=== PATIENT | female | born 1990 | race Caucasian/White ===

== ENCOUNTER 2016-09-16 00:14 | Emergency (ER) | payer SELFPAY ==
[2016-09-16 00:15] VITALS: BMI 21.0
[2016-09-16 00:31] VITALS: BP 129/81; PULSE 80; RESP 18; TEMP 97.7; O2SAT 100
--- NOTE | 2016-09-16 02:09 | ED PDOC ---
HPI: Female Pain Time Seen by Provider: 09/16/16 00:29 Chief Complaint (Nursing): Female Genitourinary Chief Complaint (Provider): Burning on urination, a few hours History Per: Patient History/Exam Limitations: no limitations Onset/Duration Of Symptoms: Days Current Symptoms Are (Timing): Still Present Severity: Moderate Pain Scale Rating Of: 5 Quality Of Discomfort: Burning Associated Symptoms: denies: Fever, Chills, Nausea, Vomiting, Loss Of Appetite Alleviating Factors: None Additional Complaint(s): Pt states she was at work and developed pain on urination. Pt denies back pain, abdominal pain, fever or nausea. Past Medical History Reviewed: Historical Data, Nursing Documentation, Vital Signs Vital Signs: Last Vital Signs Temp 97.7 F 09/16/16 00:28 Pulse 80 09/16/16 00:28 Resp 18 09/16/16 00:28 BP 129/81 09/16/16 00:28 Pulse Ox 100 09/16/16 00:28 - Medical History PMH: No Chronic Diseases Denies: Depression - Surgical History Surgical History: No Surg Hx - Family History Family History: States: No Known Family Hx - Living Arrangements Living Arrangements: With Family - Social History Current smoker - smoking cessation education provided: No - Home Medications Home Medications: Ambulatory Orders Medication Instructions Recorded Naproxen [Naprosyn] 500 mg PO BID #14 tab 01/29/12 Azithromycin [Zithromax Z-Naren] 250 mg PO DAILY #6 tab 06/28/12 Cetirizine Hydrochloride [Zyrtec] 5 mg PO DAILY #10 tab 06/28/12 Acetaminophen/Oxycodone Hydr 1 tab PO Q6 PRN #10 tab 04/21/13 [Percocet 325 mg-5 mg] Neomycin/Polymyxin/Hydrocortis 3 drop QID #1 bottle 04/21/13 [Cortisporin Otic Susp] Ciprofloxacin [Cipro] 500 mg PO BID #10 tab 09/16/16 - Allergies Allergies/Adverse Reactions: Allergies Allergy/AdvReac Type Severity Reaction Status Date / Time No Known Allergies Allergy Verified 01/29/12 07:17 Review of Systems ROS Statement: Except As Marked, All Systems Reviewed And Found Negative Genitourinary Female: Positive for: Dysuria Physical Exam - Reviewed Nursing Documentation Reviewed: Yes Vital Signs Reviewed: Yes - Physical Exam Appears: Positive for: Well, Non-toxic, No Acute Distress Head Exam: Positive for: ATRAUMATIC, NORMAL INSPECTION, NORMOCEPHALIC Skin: Positive for: Normal Color, Warm, DRY Eye Exam: Positive for: Normal appearance ENT: Positive for: Normal ENT Inspection Neck: Positive for: Normal, Painless ROM Cardiovascular/Chest: Positive for: Regular Rate, Rhythm Respiratory: Positive for: CNT, Normal Breath Sounds Gastrointestinal/Abdominal: Positive for: Normal Exam, Bowel Sounds, Soft. Negative for: Tenderness Back: Positive for: Normal Inspection Extremity: Positive for: Normal ROM Neurologic/Psych: Positive for: Alert, Oriented - ECG O2 Sat by Pulse Oximetry: 100 Disposition - Clinical Impression Clinical Impression: Urinary tract infection - Patient ED Disposition Is Patient to be Admitted: No Counseled Patient/Family Regarding: Diagnosis, Need For Followup, Rx Given - Disposition Referrals: [facility] [Outside] [facility] [Outside] Disposition: Routine/Home Disposition Time: 02:04 Condition: GOOD Prescriptions: Ciprofloxacin [Cipro] 500 mg PO BID #10 tab Instructions: Urinary Tract Infection in Women (ED)
== END 2016-09-16 02:25 | disposition home or self-care (01) ==
LOC: H.ER 00:14
DX: N39.0 Urinary tract infection, site not specified (principal)

== ENCOUNTER 2016-12-15 20:52 | Observation (INO) | payer SELFPAY ==
[2016-12-15 20:52] VITALS: BMI 21.0
[2016-12-15 21:09] VITALS: TEMP 98; O2SAT 100
[2016-12-15] MEDS ORDERED: Iohexol 240 (50 ml) PO STA (21:54)
[2016-12-15 22:02] LABS: BASO % 0.9 % (0.0-2.0); EOS # 0.2 K/uL (0.0-0.7); EOS % 4.5 % (0.0-4.0); HEMATOCRIT 39.6 % (34.0-47.0); LYMPH # 1.7 K/uL (1.0-4.3); MEAN CORPUSCULAR HGB CONC 32.9 g/dL (33.0-37.0); MEAN PLATELET VOLUME 9.5 fl (7.2-11.7); MONO # 0.4 K/uL (0.0-0.8); MONO % 7.7 % (0.0-10.0); NEUT # 3.1 K/uL (1.8-7.0); NEUT % 55.9 % (50.0-75.0); NRBC % 0.2 % (0.0-0.0); WHITE BLOOD COUNT 5.5 K/uL (4.8-10.8)
[2016-12-15] MEDS ORDERED: Iohexol 240 (50 ml) ONE (22:15)
[2016-12-15 22:20] LABS: RBC URINE 3 /hpf (0-3); URINE BACTERIA FEW (<OCC); URINE BILIRUBIN NEGATIVE (NEGATIVE); URINE BLOOD NEGATIVE (NEGATIVE); URINE COLOR YELLOW (YELLOW); URINE GLUCOSE (UA) NEG (Normal); URINE KETONE NEGATIVE (NEGATIVE); URINE LEUKOCYTE ESTERASE LARGE Leu/uL (Negative); URINE PROTEIN NEGATIVE (NEGATIVE); URINE UROBILINOGEN 0.2-1.0 mg/dL (0.2-1.0); WBC URINE 34 /hpf (0-5)
[2016-12-15 22:29] LABS: ALB/GLOB RATIO 1.2 (1.0-2.1); ALKALINE PHOSPHATASE 65 U/L (38-126); ALT/SGPT 9 U/L (9-52); AST/SGOT 54 U/L (14-36); BILIRUBIN,TOTAL 1.4 mg/dl (0.2-1.3); BLOOD UREA NITROGEN 9 mg/dl (7-17); CALCIUM 9.5 mg/dL (8.4-10.2); CARBON DIOXIDE 25 mmol/L (22-30); CHLORIDE 103 mmol/L (98-107); GFR AFRICAN-AMERICAN > 60; GLUCOSE,RANDOM 88 mg/dL (65-105); SODIUM 143 mmol/l (132-148); TOTAL PROTEIN 8.9 G/DL (6.3-8.2)
--- NOTE | 2016-12-15 23:15 | ED PDOC ---
HPI: Abdomen Time Seen by Provider: 12/15/16 21:14 Chief Complaint (Nursing): Female Genitourinary Chief Complaint (Provider): Abdominal pain, right lower back pain History Per: Patient History/Exam Limitations: no limitations Onset/Duration Of Symptoms: Days (3) Outside of [place] travel?: No Current Symptoms Are (Timing): Still Present Severity: Moderate Pain Scale Rating Of: 5 Location Of Pain/Discomfort: RLQ Quality Of Discomfort: Sharp ("like a sharp bubble of gas" ) Associated Symptoms: Nausea, Loss Of Appetite, Urinary Symptoms (Increased frequency - PT states similar to UTI in the past ). denies: Fever, Chills, Vomiting, Back Pain Exacerbating Factors: None Alleviating Factors: None Last Bowel Movement: Days Ago (2) Past Medical History Reviewed: Historical Data, Nursing Documentation, Vital Signs Vital Signs: Last Vital Signs Temp 98 F 12/15/16 21:06 Pulse 75 12/15/16 21:06 Resp 18 12/15/16 21:06 BP 150/108 H 12/15/16 21:06 Pulse Ox 100 12/16/16 00:37 - Medical History PMH: No Chronic Diseases Denies: Depression - Surgical History Surgical History: No Surg Hx - Family History Family History: States: No Known Family Hx - Living Arrangements Living Arrangements: With Family - Social History Current smoker - smoking cessation education provided: No - Home Medications Home Medications: Ambulatory Orders Medication Instructions Recorded Naproxen [Naprosyn] 500 mg PO BID #14 tab 01/29/12 Azithromycin [Zithromax Z-Naren] 250 mg PO DAILY #6 tab 06/28/12 Cetirizine Hydrochloride [Zyrtec] 5 mg PO DAILY #10 tab 06/28/12 Acetaminophen/Oxycodone Hydr 1 tab PO Q6 PRN #10 tab 04/21/13 [Percocet 325 mg-5 mg] Neomycin/Polymyxin/Hydrocortis 3 drop QID #1 bottle 04/21/13 [Cortisporin Otic Susp] Ciprofloxacin [Cipro] 500 mg PO BID #10 tab 09/16/16 - Allergies Allergies/Adverse Reactions: Allergies Allergy/AdvReac Type Severity Reaction Status Date / Time No Known Allergies Allergy Verified 12/15/16 21:36 Review of Systems ROS Statement: Except As Marked, All Systems Reviewed And Found Negative Constitutional: Negative for: Fever, Chills Gastrointestinal: Positive for: Abdominal Pain, Constipation. Negative for: Diarrhea Physical Exam - Reviewed Nursing Documentation Reviewed: Yes Vital Signs Reviewed: Yes - Physical Exam Appears: Positive for: Well, Non-toxic, No Acute Distress Head Exam: Positive for: ATRAUMATIC, NORMAL INSPECTION, NORMOCEPHALIC Skin: Positive for: Normal Color, Warm, DRY Eye Exam: Positive for: Normal appearance ENT: Positive for: Normal ENT Inspection Neck: Positive for: Normal, Painless ROM Cardiovascular/Chest: Positive for: Regular Rate, Rhythm Respiratory: Positive for: Normal Breath Sounds. Negative for: Accessory Muscle Use, Respiratory Distress Gastrointestinal/Abdominal: Positive for: Bowel Sounds, Soft, Tenderness (RLQ). Negative for: Normal Exam Back: Positive for: Normal Inspection Extremity: Positive for: Normal ROM Neurologic/Psych: Positive for: Alert, Oriented - Laboratory Results Result Diagrams: 12/15/16 21:50 12/15/16 23:56 - ECG O2 Sat by Pulse Oximetry: 100 Pulse Ox Interpretation: Normal Medical Decision Making Medical Decision Making: CT normal. UTI ED OBSERVATION Date of observation admission: 12/15/16 Time of observation admission: 21:40 - Observation admission statement Patient is being placed in observation because:: Abdominal pain - Pending CT - Goals of Observation Goals of observation are:: CT scan. - Progress Note Progress Note: 12/15/16 23:36 Pt state pain is barely tolerable. Toradol ordered. RN at bedside to repeat K+ 12/16/16 00:37 Pt denies pain on re-evaluation after toradol IV. Disposition - Clinical Impression Clinical Impression: UTI (urinary tract infection) - Patient ED Disposition Is Patient to be Admitted: No Counseled Patient/Family Regarding: Diagnosis, Need For Followup, Rx Given - Disposition Disposition: Routine/Home Disposition Time: 01:59 Condition: GOOD
[2016-12-16] MEDS ORDERED: Sodium Chloride 0.9% 50 ML IV ONE (00:21)
[2016-12-16] MEDS ORDERED: Iohexol 300 100 ML IJ ONE (00:21)
[2016-12-16 02:03] VITALS: BP 115/82; PULSE 65; RESP 16
--- NOTE | 2016-12-16 09:24 | CT ---
PROCEDURE: CT Abdomen and Pelvis with contrast HISTORY: RLQ pain, decreased appetite, constipation COMPARISON: None. TECHNIQUE: Following oral and intravenous contrast administration, a CT examination of the abdomen and pelvis performed from the domes of the diaphragms to the symphysis pubis with reformatted datasets provided not only axial but also sagittal and coronal planes. Contrast dose: Omnipaque 300, 95 cc Radiation dose: Total exam DLP = 582.49 mGy-cm. This CT exam was performed using one or more of the following dose reduction techniques: Automated exposure control, adjustment of the mA and/or kV according to patient size, and/or use of iterative reconstruction technique. FINDINGS: LOWER THORAX: No infiltrate pleural appear or pericardial effusion identified. LIVER: Unremarkable. No gross lesion or ductal dilatation. GALLBLADDER AND BILE DUCTS: Unremarkable. PANCREAS: Unremarkable. No gross lesion or ductal dilatation. SPLEEN: Unremarkable. ADRENALS: Unremarkable. No mass. KIDNEYS AND URETERS: Unremarkable. No hydronephrosis. No solid mass. VASCULATURE: Unremarkable. No aortic aneurysm. BOWEL: Unremarkable. No obstruction. No gross mural thickening. APPENDIX: Normal appendix. PERITONEUM: Unremarkable. No free fluid. No free air. LYMPH NODES: Unremarkable. No enlarged lymph nodes. BLADDER: Unremarkable. REPRODUCTIVE: In homogeneous enhancement at the upper fundus may reflect an element of fibroid uterine disease. BONES: No acute fracture. OTHER FINDINGS: None. IMPRESSION: 1. Normal appendix. 2. Potential limited fibroid uterine disease though this is not definite. Please see discussion above. 3. Remainder of the examination appears unremarkable.
== END 2016-12-16 02:02 | disposition home or self-care (01) ==
LOC: H.ER 20:52 → H.EROBSV 21:40
PROVIDERS: ADMIT Emergency Medicine; ATTEND Emergency Medicine
DX: N39.0 Urinary tract infection, site not specified (principal); M54.5 Low back pain
CPT/HCPCS: 74177; 80053; 81003; 81025; 84132; 85025; 87086; 99284; G0378; J1885; Q9966; Q9967

== ENCOUNTER 2017-10-25 10:42 | Emergency (ER) | payer OTHER ==
[2017-10-25 11:00] VITALS: BMI 25.0
[2017-10-25 11:04] VITALS: BP 118/80; PULSE 87; RESP 18; TEMP 98.8; O2SAT 99
[2017-10-25 12:10] LABS: SQUAMOUS EPITHIAL 5 /hpf (0-5); URINE BILIRUBIN NEGATIVE (NEGATIVE); URINE BLOOD NEGATIVE (NEGATIVE); URINE CLARITY SLIGHTY-CLOUDY (Clear); URINE COLOR YELLOW (YELLOW); URINE GLUCOSE (UA) NEG (Normal); URINE LEUKOCYTE ESTERASE NEG Leu/uL (Negative); URINE PROTEIN 30 mg/dL (NEGATIVE); URINE UROBILINOGEN 0.2-1.0 mg/dL (0.2-1.0)
--- NOTE | 2017-10-25 12:32 | ED PDOC ---
HPI: Female Pain Time Seen by Provider: 10/25/17 11:16 Chief Complaint (Nursing): Female Genitourinary Chief Complaint (Provider): Female Genitourinary History/Exam Limitations: no limitations Onset/Duration Of Symptoms: Days (x2) Current Symptoms Are (Timing): Still Present Additional Complaint(s): 26 year old female arrives to ED with a complaint of painful urination associate with increased frequency since yesterday. Patient states that she has a history of UTIs, last infection occurring a year ago, and symptoms feel similar. She denies taking any medications for pain, fever, chills, flank pain, nausea, vomiting, bloody urine, vaginal pain or discharge. LMP: 10/16/17. PMD: Dr. Chuy Baird Past Medical History Reviewed: Historical Data, Nursing Documentation, Vital Signs Vital Signs: Last Vital Signs Temp 98.8 F 10/25/17 11:03 Pulse 87 10/25/17 11:03 Resp 18 10/25/17 11:03 BP 118/80 10/25/17 11:03 Pulse Ox 99 10/25/17 11:03 - Medical History PMH: No Chronic Diseases Denies: Depression - Surgical History Surgical History: No Surg Hx - Family History Family History: States: Unknown Family Hx - Social History Current smoker - smoking cessation education provided: No Ex-Smoker (has not smoked in the last 12 months): No Alcohol: Social Drugs: Denies - Home Medications Home Medications: Ambulatory Orders Medication Instructions Recorded Naproxen [Naprosyn] 500 mg PO BID #14 tab 01/29/12 Azithromycin [Zithromax Z-Naren] 250 mg PO DAILY #6 tab 06/28/12 Cetirizine Hydrochloride [Zyrtec] 5 mg PO DAILY #10 tab 06/28/12 Acetaminophen/Oxycodone Hydr 1 tab PO Q6 PRN #10 tab 04/21/13 [Percocet 325 mg-5 mg] Neomycin/Polymyxin/Hydrocortis 3 drop QID #1 bottle 04/21/13 [Cortisporin Otic Susp] Ciprofloxacin [Cipro] 500 mg PO BID #10 tab 09/16/16 Ciprofloxacin [Cipro] 500 mg PO BID #10 tab 12/16/16 Fluconazole [Diflucan] 150 mg PO ONCE #1 tab 12/16/16 - Allergies Allergies/Adverse Reactions: Allergies Allergy/AdvReac Type Severity Reaction Status Date / Time No Known Allergies Allergy Verified 10/25/17 11:07 Review of Systems ROS Statement: Except As Marked, All Systems Reviewed And Found Negative Constitutional: Negative for: Fever, Chills Gastrointestinal: Negative for: Nausea, Vomiting Genitourinary Female: Positive for: Dysuria, Frequency. Negative for: Hematuria , Vaginal Discharge, Vaginal Bleeding Musculoskeletal: Negative for: Other (flank pain) Physical Exam - Reviewed Nursing Documentation Reviewed: Yes Vital Signs Reviewed: Yes - Physical Exam Comments: GENERAL APPEARANCE: Patient is awake, alert, oriented x 3, in no acute distress. SKIN: Warm, dry; (-) cyanosis. CHEST AND RESPIRATORY: (-) wheezing; (-) rales, (-) rhonchi, (-) rub; breath sounds equal bilaterally. HEART AND CARDIOVASCULAR: (-) irregularity; (-) murmur, (-) gallop ABDOMEN AND GI: Soft, (-) tenderness. BACK: normal inspection, (-) CVA tenderness. EXTREMITIES: (-) deformity. EURO AND PSYCH: Mental status as above. 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 Strength and DTRs symmetric. Babinski normal bilaterally. - ECG O2 Sat by Pulse Oximetry: 99 (RA) Pulse Ox Interpretation: Normal Medical Decision Making Medical Decision Making: Initial Impression: Dysuria, most likely UTI Initial Plan: * Urine * Urine culture * UA Time: 1201 --Urine: negative for infection or . Chlamydia/GC additionally ordered. --Discussed with patient about benefit of STI prophylaxis. Patient admits to 1 new male sexual partner with use of protection. She agrees to prophylaxis plan. Rocephin IM and Zithromax PO administered. 1315 On re-evaluation, patient has no additional complaints. On exam, patient remains AAOx3, in no acute distress. Lungs clear to auscultation, cardiac RRR, abdomen soft, non-tender, repeat neuro exam shows no focal findings. Lab/Diagnostic results d/w the patient in great detail. Diagnosis of dysuria, to consider STD d/w the patient. Based on history, exam and diagnostic results, plan will be for outpatient follow up. Patient instructed to follow-up with pmd / referral provided / the clinic in 1- 2 days without fail. Advised to take medication as prescribed. Return to the emergency room at any time for any new or worsening symptoms. Patient states she fully agrees with and understands discharge instructions. States that she agrees with the plan and disposition. Verbalized and repeated discharge instructions and plan. I have given the patient opportunity to ask any additional questions. Scribe Attestation: Documented by Jeanette Junior, acting as a scribe for Demetria Ha PA-C. Provider Scribe Attestation: All medical record entries made by the Scribe were at my direction and personally dictated by me. I have reviewed the chart and agree that the record accurately reflects my personal performance of the history, physical exam, medical decision making, and the department course for this patient. I have also personally directed, reviewed, and agree with the discharge instructions and disposition. Disposition - Clinical Impression Clinical Impression: Dysuria, Possible exposure to STD - Patient ED Disposition Is Patient to be Admitted: No Counseled Patient/Family Regarding: Studies Performed, Diagnosis, Need For Followup, Rx Given - Disposition Referrals: Chuy Baird MD [Family Provider] - Disposition: Routine/Home Disposition Time: 13:20 Condition: STABLE Additional Instructions: The emergency medical care you received today was directed at your acute symptoms. If you were prescribed any medication, please fill it and take as directed. It may take several days for your symptoms to resolve. Return to the Emergency Department if your symptoms worsen, do not improve, or if you have any other problems. Please contact your doctor in 2 days for re-evaluation and follow up / or call one of the physicians/clinics you have been referred to that are listed on the Patient Visit Information form that is included in your discharge packet. Bring any paperwork you were given at discharge with you along with any medications you are taking to your follow up visit. Our treatment cannot replace ongoing medical care by a primary care provider (PCP) outside of the emergency department. Instructions: Dysuria, Adult (DC), Screening for Sexually Transmitted Infections, Sexually-Transmitted Diseases, STD Prevention Forms: [employer] (Palauan) Print Language: CITIZ[place] OF [place] - POA Present On Arrival: None Results - Lab Results Lab Results: 10/25/17 11:50 Urine Color Yellow Urine Clarity Slighty-cloudy Urine pH 5.0 Ur Specific [place] 1.028 Urine Protein 30 Urine Glucose (UA) Neg Urine Ketones Negative Urine Blood Negative Urine Nitrate Negative Urine Bilirubin Negative Urine Urobilinogen 0.2-1.0 Ur Leukocyte Esterase Neg Urine RBC (Auto) 3 Urine Microscopic WBC 2 Ur Squamous Epith Cells 5
[2017-10-25] MEDS ORDERED: cefTRIAXone (Rocephin) 250 mg Inj IM ONE (12:54)
[2017-10-25] MEDS ORDERED: Sterile Water 10 ML IV ONE (13:02)
== END 2017-10-25 13:47 | disposition home or self-care (01) ==
LOC: H.ER 10:42
DX: R30.0 Dysuria (principal); Z20.2 Contact with and (suspected) exposure to infections with a predominantly sexual mode of transmission
CPT/HCPCS: 81003; 81025; 87086; 87491; 87591; 96372; 99283; J0696